=== PATIENT | female | born 1985 | race Caucasian/White ===

== ENCOUNTER 2018-03-31 13:04 | Emergency (ER) | payer SELFPAY ==
--- NOTE | 2018-03-31 13:33 | Emergency Department Record ---
History of Present Illness - General Chief complaint: Lower Extremity Pain Stated complaint: LT ANKLE PAIN Time Seen by Provider: 03/31/18 13:32 Source: Patient Mode of Arrival: Ambulatory Limitations: No limitations - History of Present Illness Initial comments: 33 yo female presents with worsening left ankle pain and achilles pain after tripping on a box at work last week on . She has been on crutches with a strap up ankle brace. The pain is worsening. She does not have a family doctor. No swelling. She states the achilles is now very painful as well. She has a standing job. MD Complaint: Extremity pain, Joint pain -: Days(s) (5) Location: Ankle -: Yes Arthralgia Radiation: Distal Quality: Aching Consistency: Constant Improves with: Elevation, Immobilization Worsens with: Palpation, Walking, Weight bearing Associated Symptoms: Denies other symptoms - Related Data Allergies Allergy/AdvReac Type Severity Reaction Status Date / Time bee pollen Allergy ANAPHYLAXIS Verified 03/31/18 13:36 erythromycin base Allergy VOMITING Verified 03/31/18 13:36 Review of Systems Constitutional: Denies: Chills, Fever, Malaise, Weakness Eyes: Denies: Eye discharge ENT: Denies: Congestion, Throat pain Respiratory: Denies: Cough, Dyspnea, Hemoptysis, Stridor, Wheezes Cardiovascular: Denies: Chest pain, Palpitations, Syncope Endocrine: Denies: Fatigue Gastrointestinal: Denies: Abdominal pain, Diarrhea, Nausea, Vomiting Genitourinary: Denies: Dysuria, Urgency Musculoskeletal: Reports: Arthralgia, Myalgia. Denies: Back pain, Joint swelling Skin: Denies: Bruising, Change in color, Rash Neurological: Denies: Headache, Numbness, Weakness Psychiatric: Denies: Anxiety Hematological/Lymphatic: Denies: Easy bleeding, Easy bruising, Swollen glands Past Medical History - SOCIAL HISTORY Smoking Status: Current every day smoker - RESPIRATORY Hx Respiratory Disorders: Yes Hx Sleep Apnea: Yes - CARDIOVASCULAR Hx Cardio Disorders: Yes Hx Heart Attack: Yes (poss induced by MRI dye) - NEURO Hx Neuro Disorders: Yes Hx Headaches: Yes - GI Hx GI Disorders: No - Hx Genitourinary Disorders: Yes Hx Kidney Stones: Yes - ENDOCRINE Hx Endocrine Disorders: No - MUSCULOSKELETAL Hx Musculoskeletal Disorders: Yes Hx Arthritis: Yes (Spine -upper) Comment:: Carpal tunnel - PSYCH Hx Psych Problems: Yes Hx Anxiety: Yes Comment:: PTSD - HEMATOLOGY/ONCOLOGY Hx Hematology/Oncology Disorders: No Family Medical History Hx Cancer: Father, Grandparents Hx Diabetes: Grandparents Hx Heart Disease: Father, Grandparents Hx Liver Disease: Father *Liver Comment: Hep C Physical Exam - General General Appearance: Alert, Oriented x3, Cooperative, No acute distress Limitations: No limitations - Head Head exam: Atraumatic, Normal inspection - Eye Eye exam: Normal appearance. negative: Conjunctival injection, Scleral icterus - ENT ENT exam: Normal exam Ear exam: Normal external inspection Nasal Exam: Normal inspection Mouth exam: Normal external inspection - Neck Neck exam: Normal inspection - Cardiovascular Cardiovascular Exam: Regular rate, Normal rhythm, Normal heart sounds Peripheral Pulses: 1+: Dorsalis Pedis (L) - Rectal Rectal exam: Deferred - exam: Deferred - Extremities Extremities exam: Normal inspection, Full ROM, Normal capillary refill, Tenderness. negative: Calf tenderness, Pedal edema Image of Feet: 1 - intact achilles but tender, no swellng, no warmth or redness 2 - tender lateral and posterior to malleolus - Back Back exam: Reports: Normal inspection, Full ROM. Denies: Muscle spasm, Rash noted, Tenderness - Neurological Neurological exam: Alert, Motor sensory deficit, Oriented X3. negative: Altered - Psychiatric Psychiatric exam: Normal affect, Normal mood - Skin Skin exam: Dry, Intact, Normal color, Warm Course - Reevaluation(s) Reevaluation #1: 03/31/18 14:27 The XR was negative for acute fracture She was placed in a [employer] and given a referral for follow up given her pain. Disposition Disposition: Discharge Clinical Impression: Ankle pain, left, Achilles tendon pain Disposition: Home, Self-Care Condition: (1) Good Instructions: Achilles Tendinitis (ED), Ankle Sprain (ED) Additional Instructions: Elevate the ankle as much as possible NO walking or putting any weight on the ankle or achilless tendon Use the crutches and boot for support and comfort Referrals: BEV OCHOA [DOCTOR OF OSTEOPATH] - [facility] [Provider Group] Forms: Patient Portal Access Time of Disposition: 14:28 Quality - Quality Measures Quality Measures: N/A - Blood Pressure Screening Does Patient Have Any of the Following: No Blood Pressure Classification: Normal BP Reading Systolic Measurement: 109 Diastolic Measurement: 64 Screening for High Blood Pressure: < Normal BP, F/U Not Required > [G8783]
--- NOTE | 2018-04-02 12:52 | RADIOLOGY REPORT ---
EXAM: LEFT ANKLE HISTORY: PATIENT TRIPPED OVER A BOX FIVE DAYS AGO WITH PAIN WEIGHT BEARING ON THE LEFT ANKLE. TECHNIQUE: Four views of the left ankle were obtained. Comparison: Left ankle series 03/26/18. Report of the prior study is not available within PACS. Encounter: Subsequent. FINDINGS: Very minor spurring at the ankle. Prominent plantar calcaneal spur as well. No definite fracture or dislocation of the left ankle seen and no appreciable soft tissue swelling evident. IMPRESSION: 1. MINOR SPURRING AT THE LEFT ANKLE. 2. NO FRACTURE OF THE LEFT ANKLE EVIDENT. 3. PROMINENT PLANTAR CALCANEAL SPUR. JOB NUMBER: [id number] [facility]
== END 2018-03-31 14:43 | disposition home or self-care (01) ==
LOC: ER 13:04
DX: G89.11 Acute pain due to trauma (principal); M76.62 Achilles tendinitis, left leg; M25.572 Pain in left ankle and joints of left foot; F17.210 Nicotine dependence, cigarettes, uncomplicated; W22.8XXA Striking against or struck by other objects, initial encounter; Y99.0 Civilian activity done for income or pay
CPT/HCPCS: 99283

== ENCOUNTER 2019-10-30 16:16 | Emergency (ER) | payer BC, OTHER ==
[2019-10-30] MEDS ORDERED: METHYLPREDNISOLONE 80MG/VIAL IM ONE (17:15)
[2019-10-30] MEDS ORDERED: IBUPROFEN 600 MG TABLET PO ONE (17:15)
--- NOTE | 2019-10-30 17:21 | Emergency Department Record ---
History of Present Illness - General Chief complaint: Extremity Problem Stated complaint: RT ELBOW INJURY Time Seen by Provider: 10/30/19 17:11 Source: Patient Mode of Arrival: Ambulatory Limitations: No limitations - History of Present Illness Initial comments: 34 yo female presents with right elbow pain that started this morning. The pain is sharp and with extension of the elbow. If still or flexed she denies pain. No direct trauma. No swelling. No numbness, tingling or weakness. She has the pain with near full extension of the elbow. She has had prior carpal tunnel surgery. No recent illness. She cells phones for a living. Onset/Timin -: Days(s) Location: Right, Elbow -: Yes Arthralgia Improves with: Nothing Worsens with: Other Associated Symptoms: Denies other symptoms - Related Data Previous Rx's Medication Instructions Recorded Methylprednisolone [Medrol Dose 4 mg PO DAILY #1 tab.ds.pk 10/30/19 Pack] Allergies Allergy/AdvReac Type Severity Reaction Status Date / Time bee pollen Allergy ANAPHYLAXIS Verified 10/30/19 17:00 erythromycin base Allergy VOMITING Verified 10/30/19 17:00 Travel Screening - Travel/Exposure Within Last 30 Days Have you traveled within the last 30 days?: No - Travel/Exposure Within Last Year Have you traveled outside the [place] in the last year?: No - Additonal Travel Details Have you been exposed to anyone with a communicable illness?: No - Travel Symptoms Symptom Screening: None Review of Systems Constitutional: Denies: Chills, Fever, Weakness Eyes: Denies: Eye discharge ENT: Denies: Congestion, Throat pain Respiratory: Denies: Cough Cardiovascular: Denies: Chest pain, Syncope Endocrine: Denies: Fatigue Gastrointestinal: Denies: Abdominal pain, Diarrhea, Nausea, Vomiting Genitourinary: Denies: Dysuria, Urgency Musculoskeletal: Reports: Arthralgia. Denies: Joint swelling, Myalgia Skin: Denies: Bruising, Change in color, Rash Neurological: Denies: Headache Psychiatric: Denies: Anxiety Hematological/Lymphatic: Denies: Easy bleeding, Easy bruising Past Medical History - SOCIAL HISTORY Smoking Status: Current every day smoker Alcohol Use: Occasional Drug Use: None - RESPIRATORY Hx Respiratory Disorders: Yes Hx Sleep Apnea: Yes (non dx'd) - CARDIOVASCULAR Hx Cardio Disorders: Yes Hx Heart Attack: Yes (poss induced by MRI dye) - NEURO Hx Neuro Disorders: Yes Hx Headaches: Yes - GI Hx GI Disorders: No - Hx Genitourinary Disorders: Yes Hx Kidney Stones: Yes - ENDOCRINE Hx Endocrine Disorders: No - MUSCULOSKELETAL Hx Musculoskeletal Disorders: Yes Hx Arthritis: Yes (Spine -upper) Comment:: Carpal tunnel - PSYCH Hx Psych Problems: Yes Hx Anxiety: Yes Comment:: PTSD - HEMATOLOGY/ONCOLOGY Hx Hematology/Oncology Disorders: No Family Medical History Any Significant Family History?: No Hx Cancer: Father, Grandparents Hx Diabetes: Grandparents Hx Heart Disease: Father, Grandparents Hx Liver Disease: Father *Liver Comment: Hep C Physical Exam - General General Appearance: Alert, Oriented x3, Cooperative, No acute distress Limitations: No limitations - Head Head exam: Atraumatic, Normal inspection - Eye Eye exam: Normal appearance. negative: Conjunctival injection - ENT ENT exam: Normal exam Ear exam: Normal external inspection Nasal Exam: Normal inspection Mouth exam: Normal external inspection - Neck Neck exam: Normal inspection - Respiratory Respiratory exam: Normal lung sounds bilaterally. negative: Respiratory distress - Cardiovascular Cardiovascular Exam: Regular rate, Normal rhythm, Normal heart sounds Peripheral Pulses: 2+: Radial (R) - Extremities Extremities exam: Normal inspection, Tenderness (tender over the medial elbow, normal inspection, ). negative: Full ROM (Pain with near full extension otherwise normal flexion, normal supination and pronation), Joint swelling - Back Back exam: Denies: CVA tenderness (R), CVA tenderness (L) - Neurological Neurological exam: Alert, Oriented X3, Other (Normal radial, ulnar, and median motor and sensory funciton distally). negative: Motor sensory deficit - Psychiatric Psychiatric exam: Normal affect, Normal mood. negative: Agitated, Anxious - Skin Skin exam: Dry, Intact, Normal color, Warm Course Vital Signs 10/30/19 17:01 Temperature 99.1 F Pulse Rate [ 79 Pulse Ox Probe] Respiratory 16 Rate Blood Pressure 124/78 [Left Arm] Pulse Ox 98 - Reevaluation(s) Reevaluation #1: 10/30/19 18:23 XR is negative 10/30/19 18:41 We discussed possible ulnar nerve strain as a cause She will be treated conservatively with instructions for home care and follow up Disposition Disposition: Discharge Clinical Impression: Strain of elbow Disposition: Home, Self-Care Condition: (1) Good Instructions: Cubital Tunnel Syndrome (ED) Additional Instructions: Use the sling for comfort Ice the area 3-4 times daily Call your doctor for a recheck in the next week if any symptoms continue Return if you have swelling, redness, fever or new concerns Prescriptions: Methylprednisolone [Medrol Dose Pack] 4 mg PO DAILY #1 tab.ds.pk Forms: Patient Portal Access Time of Disposition: 18:22 Quality - Quality Measures Quality Measures: N/A - Blood Pressure Screening Does Patient Have Any of the Following: No Blood Pressure Classification: Pre-Hypertensive BP Reading Systolic Measurement: 124 Diastolic Measurement: 78 Screening for High Blood Pressure: < Pre-Hypertensive BP, F/U Documented > [G8950] Pre-Hypertensive Follow-up Interventions: Referral to alternative/primary care provider.
--- NOTE | 2019-10-30 18:14 | RADIOLOGY REPORT ---
EXAMINATION: Right Elbow, Complete Minimum Three Views EXAM DATE: 10/30/2019 6:03 PM TECHNIQUE: AP, lateral, and oblique INDICATION: elbow pain, fall 2 days ago, painful extension COMPARISON: None ENCOUNTER: Initial FINDINGS: Bones, joints and soft tissues are unremarkable IMPRESSION: No acute posttraumatic finding Consider follow-up radiography and/or MRI if symptoms persist Dictated by: Eduard Johnson MD on 10/30/2019 6:11 PM. .
== END 2019-10-30 19:00 | disposition home or self-care (01) ==
LOC: ER 16:16
DX: S53.401A Unspecified sprain of right elbow, initial encounter (principal); W01.198A Fall on same level from slipping, tripping and stumbling with subsequent striking against other object, initial encounter; I25.2 Old myocardial infarction; Z87.891 Personal history of nicotine dependence
CPT/HCPCS: 96372; 99284; J1040